=== PATIENT | female | born 1990 | race American Indian/Alaskan Native ===

== ENCOUNTER 2017-09-17 08:19 | Emergency (ER) | payer OTHER, MEDICAID ==
[2017-09-17 09:03] LABS: Bacteria,Urine 2+ /HPF (Negative); Bilirubin,Urine NEG (Negative); Blood,Urine LG (Negative); Color,Urine Amber (Yellow); Mucus,Urine 3+ /HPF; Urobilinogen,Urine < 2.0 mg/dL (<2.0)
[2017-09-17 09:05] LABS: Basophils # (Auto) 0.1 K/mm3 (0.0-0.1); Basophils % (Auto) 0.9 % (0.0-1.8); Eosinophils # (Auto) 0.3 K/mm3 (0.0-0.4); Eosinophils % (Auto) 4.4 % (0.0-4.3); Hematocrit 41.2 % (30.3-42.9); Hemoglobin 13.4 gm/dl (10.1-14.3); Lymphocytes # (Auto) 2.4 K/mm3 (1.2-5.4); Lymphocytes % (Auto) 31.8 % (13.4-35.0); Mean Corpuscular HGB Conc 33 % (30-34); Mean Corpuscular Hemoglobin 29 pg (28-32); Mean Corpuscular Volume 89 fl (79-97); Monocytes # (Auto) 0.6 K/mm3 (0.0-0.8); Platelet Count 205 K/mm3 (140-440); Red Blood Count 4.62 M/mm3 (3.65-5.03); Red Cell Distribution Width 14.1 % (13.2-15.2)
[2017-09-17 09:16] LABS: Alanine Aminotransferase 8 units/L (7-56); Albumin 4.1 g/dL (3.9-5); BUN/Creatinine Ratio 13; Blood Urea Nitrogen 8 mg/dL (7-17); Calcium 8.9 mg/dL (8.4-10.2); Hemolysis Index 3; Lipase 18 units/L (13-60)
[2017-09-17 12:56] VITALS: BP 128/68
--- NOTE | 2017-09-17 13:33 | Emergency Department Report ---
HPI - General Chief Complaint: Abdominal Pain Time Seen by Provider: 09/17/17 13:18 - HPI HPI: 27-year-old female complaining of dysuria, low back pain, suprapubic discomfort. No flank pain no fever no chills. Patient doesn't take any medications for his symptoms. ED Past Medical Hx - Past Medical History Previous Medical History?: No - Surgical History Past Surgical History?: No - Social History Smoking Status: Never Smoker Substance Use Type: Alcohol - Medications Home Medications: Home Medications Medication Instructions Recorded Confirmed Last Taken Type Cyclobenzaprine [Flexeril] 10 mg PO TID PRN #20 tablet 09/17/17 Unknown Rx Sulfamethoxazole/Trimethoprim 1 each PO BID #14 tablet 09/17/17 Unknown Rx [Bactrim DS TAB] ED Review of Systems ROS: Stated complaint: ABD/BACK PAIN Other details as noted in HPI Constitutional: no symptoms reported Genitourinary: urgency, dysuria Physical Exam - Physical Exam Vital Signs: Vital Signs 09/17/17 09/17/17 08:20 12:54 Temperature 98.4 F 98.9 F Pulse Rate 70 59 L Respiratory 18 20 Rate Blood Pressure 137/78 128/68 [Right] O2 Sat by Pulse 100 99 Oximetry Physical Exam: Gen. alert and oriented 3 in no distress Head atraumatic normocephalic Eyes PERR LA EOMI Chest regular rate and rhythm normal S1-S2 lungs clear bilaterally Abdomen soft nondistended Back no point tenderness paravertebral tenderness Neuro no focal deficit. Psych normal mood. ED Course Vital Signs 09/17/17 09/17/17 08:20 12:54 Temperature 98.4 F 98.9 F Pulse Rate 70 59 L Respiratory 18 20 Rate Blood Pressure 137/78 128/68 [Right] O2 Sat by Pulse 100 99 Oximetry ED Medical Decision Making - Lab Data Result diagrams: 09/17/17 08:46 09/17/17 08:46 Critical care attestation.: If time is entered above; I have spent that time in minutes in the direct care of this critically ill patient, excluding procedure time. ED Disposition Clinical Impression: UTI (urinary tract infection), Back pain Disposition: DC-01 TO HOME OR SELFCARE Is pt being admited?: No Does the pt Need Aspirin: No Condition: Stable Instructions: Abdominal Pain (ED) Prescriptions: Cyclobenzaprine [Flexeril] 10 mg PO TID PRN #20 tablet PRN Reason: Muscle Spasm Sulfamethoxazole/Trimethoprim [Bactrim DS TAB] 1 each PO BID #14 tablet Referrals: PRIMARY CARE,MD [Primary Care Provider] - 3-5 Days
== END 2017-09-17 14:11 | disposition home or self-care (01) ==
LOC: ED 08:19
DX: N39.0 Urinary tract infection, site not specified (principal)
CPT/HCPCS: 36415; 80053; 81001; 83690; 84703; 85025; 99283

== ENCOUNTER 2020-10-04 22:57 | Emergency (ER) | payer MEDICAID, OTHER ==
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
[2020-10-05 00:49] VITALS: BP 113/74
== END 2020-10-05 00:25 | disposition home or self-care (01) ==
LOC: ED 22:57
DX: S39.012A Strain of muscle, fascia and tendon of lower back, initial encounter (principal); Z79.899 Other long term (current) drug therapy; V49.59XA Passenger injured in collision with other motor vehicles in traffic accident, initial encounter; Y93.89 Activity, other specified; Y92.488 Other paved roadways as the place of occurrence of the external cause; Y99.8 Other external cause status
CPT/HCPCS: 99282